=== PATIENT | male | born 1970 | race Caucasian/White ===

== ENCOUNTER 2021-08-04 11:53 | Emergency (ER) | payer OTHER ==
[~2021-08-04] VITALS: Ht 185.4 cm; Wt 125.0 kg
[2021-08-04] MEDS ORDERED: ASPIRIN CHEWABLE 81 MG TABLET. PO ONE ×2 (12:00→12:15)
--- NOTE | 2021-08-04 12:12 | PHYS DOC ---
General Adult EDM: Chief Complaint: CHEST PAIN HPI: HPI: Patient is a 51-year-old male coming in for chest pain. Patient was concerned he was having a heart attack. Patient had just finished having intercourse with his when he felt chest pressure rated to his shoulders and his neck, diaphoresis, nausea and lightheadedness. Patient states his symptoms have subsided now. Denies any cardiac history. Patient denies any medical history but does not see a physician. Took Excedrin prior to arrival. Denies any significant family medical history. Patient states he smokes marijuana about 2- 3 times a week and drinks 1-2 beers a day, denies tobacco use (HEATHER NIÑO MD) Review of Systems: Review of Systems: All other systems within normal limits except for as noted in the HPI (HEATHER NIÑO MD) Current Medications: Current Meds: Current Medications Medications (Trade) Dose Ordered Sig/Harpreet Start Time Stop Time Status Last Admin Dose Admin Aspirin (Aspirin Chewable) 324 mg 1X ONCE 08/04/21 12:15 08/04/21 12:16 UNV Fentanyl Citrate (Fentanyl 2ml Vial) 50 mcg PRN Q15MIN PRN 08/04/21 12:15 08/05/21 12:14 UNV (HEATHER NIÑO MD) Physical Exam: PE: Constitutional: Well developed, well nourished, no acute distress, non-toxic appearance. [] HENT: Normocephalic, atraumatic, bilateral external ears normal, nose normal. [] Eyes: PERRLA, conjunctiva normal, no discharge. [] Neck: No rigidity, supple, no stridor. [] Cardiovascular: Regular rate and rhythm, brisk cap refill. Symmetric radial pulses [] Lungs & Thorax: Non labored symmetric respirations, no tachypnea or respiratory distress [] Abdomen: Soft, nondistended. Skin: Warm, dry, no erythema, no rash. Diaphoretic [] Back: Unremarkable Extremities: No deformities, range of motion grossly intact, no lower extremity edema [] Neurologic: Alert and oriented X 3, no focal deficits noted. [] Psychologic: Affect normal, judgement normal, mood normal. [] (HEATHER NIÑO MD) EKG: EKG: Sinus rhythm, heart rate 76/min, normal axis, ST depressions in V3 and V4 [] (HEATHER NIÑO MD) Radiology/Procedures: Radiology/Procedures: [address], [place] [address] IMAGING REPORT Signed PATIENT: MADISON SANTANAUNT: [id number] : 1970 LOCATION: ER AGE: 51 SEX: M EXAM STATUS: REG ER ORD. PHYSICIAN: HEATHER NIÑO MD REASON: chest pain PROCEDURE: PORTABLE CHEST 1V EXAM: Chest, single view. HISTORY: Chest pain. COMPARISON: None. FINDINGS: A frontal view of the chest is obtained. There is no infiltrate, pleural effusion or pneumothorax. The heart is normal in size. IMPRESSION: No acute pulmonary finding. Electronically signed by: Radha Ventura MD (08/04/2021 12:21 PM) [id number] DICTATED AND SIGNED BY: RADHA VENTURA MD DATE: 08/04/211220 CC: HEATHER NIÑO MD; UNKNOWN ~MTH0 0 [] (HEATHER NIÑO MD) Heart Score: C/O Chest Pain: Yes HEART Score for Chest Pain: HEART Score for Chest Pain Response (Comments) Value History Moderately Suspicious 1 ECG Nonspecific Repolarizatio 1 Age >45 - < 65 1 Risk Factors 1 or 2 Risk Factors 1 Troponin < Normal Limit 0 Total 4 Risk Factors: Risk Factors: DM, Current or recent (<one month) smoker, HTN, HLP, family histo ry of CAD, obesity. Risk Scores: Score 0 - 3: 2.5% MACE over next 6 weeks - Discharge Home Score 4 - 6: 20.3% MACE over next 6 weeks - Admit for Clinical Observation Score 7 - 10: 72.7% MACE over next 6 weeks - Early Invasive Strategies (HEATHER NIÑO MD) Course & Med Decision Making: Course & Med Decision Making Pertinent Labs and Imaging studies reviewed. (See chart for details) Repeat 2-hour troponin elevated at 2.2K. Started on heparin and consult placed to cardiology. Repeat EKG still does not show any ST elevation. Patient transferred to [facility] via EMS with heparin drip ongoing. [] (HEATHER NIÑO MD) Course & Med Decision Making See Dr. Niño chart for details. (MADISON GLEASON MD) Dragon Disclaimer: Dragon Disclaimer: This electronic medical record was generated, in whole or in part, using a voice recognition dictation system. (HEATHER NIÑO MD) Departure Departure: Impression: Primary Impression: NSTEMI (non-ST elevated myocardial infarction) Disposition: 02 SHORT TERM HOSPITAL Condition: GUARDED Dragon Disclaimer This chart was dictated in whole or in part using Voice Recognition software in a busy, high-work load, and often noisy Emergency Department environment. It may contain unintended and wholly unrecognized errors or omissions. (MADISON GLEASON MD) HEATHER NIÑO MD Aug 04, 2021 12:12 MADISON GLEASON MD Aug 09, 2021 10:28
[2021-08-04 12:22] LABS: BASO % 0 % (0-3); EOS # 0.1 x10^3/uL (0.0-0.7); EOS % 1 % (0-3); HEMATOCRIT 45.5 % (39.0-53.0); HEMOGLOBIN 15.6 g/dL (13.0-17.5); LYMPH # 1.8 x10^3/uL (1.0-4.8); LYMPH % 31 % (24-48); MEAN CORPUSCULAR HEMOGLOBIN 33 pg (25-35); MEAN CORPUSCULAR HGB CONC 34 g/dL (31-37); MEAN CORPUSCULAR VOLUME 95 fL (79-100); MONO # 0.4 x10^3/uL (0.0-1.1); MONO % 7 % (0-9); NEUT # 3.5 x10^3uL (1.8-7.7); NEUT % 60 % (31-73); PLATELET COUNT 218 x10^3/uL (140-400); RED BLOOD COUNT 4.81 x10^6/uL (4.30-5.70); RED CELL DISTRIBUTION WIDTH 13.1 % (11.5-14.5); WHITE BLOOD COUNT 5.8 x10^3/uL (4.0-11.0)
--- NOTE | 2021-08-04 12:24 | RAD ---
EXAM: Chest, single view. HISTORY: Chest pain. COMPARISON: None. FINDINGS: A frontal view of the chest is obtained. There is no infiltrate, pleural effusion or pneumo thorax. The heart is normal in size. IMPRESSION: No acute pulmonary finding. Electronically signed by: Radha Sotelo MD (08/04/2021 12:21 PM) [id number]
[2021-08-04 12:36] LABS: CALCIUM 8.9 mg/dL (8.5-10.1); GFR 78.8; POTASSIUM 4.1 mmol/L (3.5-5.1)
[2021-08-04 12:48] LABS: BARBITURATES NEG (NEG); BENZODIAZEPINES NEG (NEG); CANNABINOIDS POS (NEG); COCAINE NEG (NEG); METHADONE NEG (NEG); OPIATES NEG (NEG); PHENCYCLIDINE NEG (NEG)
[2021-08-04 12:48] LABS: ALBUMIN 3.9 g/dL (3.4-5.0); ALBUMIN/GLOBULIN RATIO 1.3 (1.0-1.7); MAGNESIUM 1.8 mg/dL (1.8-2.4); TOTAL BILIRUBIN 0.6 mg/dL (0.2-1.0); TOTAL PROTEIN 6.9 g/dL (6.4-8.2)
[2021-08-04 12:50] LABS: AMPHETAMINE/METHAMPHETAMINE NEG (NEG)
[2021-08-04 13:06] LABS: CLARITY,URINE CLEAR; COLOR,URINE YELLOW; GLUCOSE,URINE NEG (NEG)
[2021-08-04 13:07] LABS: BACTERIA,URINE 0 /HPF (0-FEW); HYALINE CASTS, URINE FEW /HPF; NITRITE,URINE NEG (NEG); RBC,URINE 0 /HPF (0-2); SQUAMOUS EPITHELIAL CELL,UR OCC /LPF; UROBILINOGEN,URINE 0.2 mg/dL (0.2 mg/dL); WBC,URINE 0 /HPF (0-4)
--- NOTE | 2021-08-04 13:56 | EKG ---
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
--- NOTE | 2021-08-04 13:57 | EKG ---
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
[2021-08-04] MEDS ORDERED: HEPARIN for IV BOLUS 10,000 UNIT/10 ML VIAL. IV ONE (15:15)
[2021-08-04] MEDS ORDERED: HEPARIN for IV BOLUS 10,000 UNIT/10 ML VIAL. IV PRN (15:15)
[2021-08-04] MEDS ORDERED: HEPARIN 25,000UTS/250ML PREMIX 250 ML IV PRN (15:15)
--- NOTE | 2021-08-04 15:31 | EKG ---
[address] [address] Test Date: 2021-08-04 Test Time: 15:10:53 Pat Name: MADISON SANTANA Department: Room: Gender: M Pool Hand: MAVIS : 1970 Requested By: HEATHER NIÑO Order Number: [id number] Reading MD: Adarsh Dejesus Measurements Intervals [place] Rate: 74 P: 34 VA: 148 QRS: 43 QRSD: 96 T: 56 QT: 408 QTc: 453 Interpretive Statements SINUS RHYTHM NON SPECIFIC ST-T WAVE CHANGES Electronically Signed On 08-04-2021 16:58:12 COSTING MANAGER by Adarsh Dejesus
[2021-08-04 17:30] VITALS: BP 137/77
== END 2021-08-04 18:04 | disposition short-term general hospital (02) ==
LOC: EDBD 12:16 → ER 12:16
DX: I21.4 Non-ST elevation (NSTEMI) myocardial infarction (principal)
CPT/HCPCS: 36415; 71045; 80053; 80307; 81001; 83690; 83735; 83880; 84484; 85025; 85379; 85610; 85730; 93005; 96365; 96375; 96376; 99285; J1644; J3010